=== PATIENT | male | born 1955 | race Caucasian/White ===

== ENCOUNTER 2017-07-12 11:11 | Emergency (ER) | payer MEDICARE, BC ==
[2017-07-12] MEDS ORDERED: 0.9 % SODIUM CHLORIDE 1,000 ML BAG IV ONE (11:16)
--- NOTE | 2017-07-12 11:21 | Emergency Department Record ---
History of Present Illness - General Chief Complaint: Abdominal Pain Stated Complaint: DIVERTICULITIS Source: Patient, Family Mode of Arrival: Ambulatory Limitations: No limitations - History of Present Illness Initial Comments: 61 yo male presents with LLQ pain for two days. He has noted blood at times mixed in the stools as well. He denies and vomiting. No fevers. He reports he has chronic renal failure on home HD. He has a decrease in appetite. He reports a history of diverticulitis a few years ago. PCP is in [place]. Dr Curiel. The pain is mild and stays in the LLQ. It has been many years since he saw a GI specialist. He states he makes about 300ml of urine a day. MD Complaint: Abdominal pain -: Days(s) (2) Location: LLQ Radiation: LLQ Migration to: LLQ Quality: Aching Consistency: Constant Improves With: Nothing Worsens With: Eating Associated Symptoms: Anorexia, Hematochezia - Related Data Previous Rx's Medication Instructions Recorded Ciprofloxacin HCl [Cipro] 500 mg PO DAILY #7 tablet 07/12/17 Metronidazole [Flagyl] 500 mg PO BID #14 tablet 07/12/17 Allergies Allergy/AdvReac Type Severity Reaction Status Date / Time naproxen [From Aleve] Allergy DIFFICULTY Verified 07/12/17 11:16 BREATHING Sulfa (Sulfonamide Allergy RASH Verified 07/12/17 11:16 Antibiotics) Review of Systems Constitutional: Denies: Chills, Fever, Malaise, Weakness Eyes: Denies: Eye discharge, Eye pain, Photophobia ENT: Denies: Congestion, Throat pain Respiratory: Denies: Cough, Dyspnea, Hemoptysis, Stridor, Wheezes Cardiovascular: Denies: Chest pain, Palpitations, Syncope Endocrine: Denies: Fatigue, Polydipsia, Polyuria Gastrointestinal: Reports: As per HPI, Abdominal pain, Hematochezia, Nausea. Denies: Diarrhea, Hematemesis, Vomiting Genitourinary: Denies: Dysuria, Frequency, Hematuria Musculoskeletal: Denies: Arthralgia, Back pain, Myalgia, Neck pain Skin: Denies: Bruising, Change in color, Rash Neurological: Denies: Headache, Numbness, Weakness Psychiatric: Denies: Anxiety Hematological/Lymphatic: Denies: Anemia, Blood Clots, Easy bleeding, Easy bruising, Swollen glands Physical Exam - General General Appearance: Alert, Oriented x3, Cooperative, No acute distress Limitations: No limitations - Head Head exam: Atraumatic, Normocephalic, Normal inspection - Eye Eye exam: Normal appearance. negative: Conjunctival injection, Periorbital swelling - ENT ENT exam: Normal exam, Mucous membranes moist Ear exam: Normal external inspection Nasal Exam: Normal inspection Mouth exam: Normal external inspection - Neck Neck exam: Normal inspection, Full ROM. negative: Tenderness - Respiratory Respiratory exam: Normal lung sounds bilaterally. negative: Respiratory distress - Cardiovascular Cardiovascular Exam: Regular rate, Normal rhythm, Normal heart sounds - GI/Abdominal GI/Abdominal exam: Soft, Tenderness (Tender in the LLQ, soft otherwise non tender). negative: Distended - exam: Deferred - Extremities Extremities exam: Normal inspection, Full ROM, Normal capillary refill. negative: Tenderness - Back Back exam: Reports: Normal inspection, Full ROM. Denies: Muscle spasm, Rash noted, Tenderness - Neurological Neurological exam: Alert, Normal gait, Oriented X3 - Psychiatric Psychiatric exam: Normal affect, Normal mood. negative: Agitated, Anxious - Skin Skin exam: Dry, Intact, Normal color, Warm Course - Reevaluation(s) Reevaluation #1: 07/12/17 11:21 No prior records on EMR 07/12/17 12:15 The labs were reviewed CBC with WBC of 6.1 and Hbg of 11.5 CMP with BUN of 58 and CR of 8.1. No old labs for comparison. Today is his next scheduled dialyses day. Lipase is normal 07/12/17 12:26 The patient is well aware of his baseline labs. His baseline Hgb is around 11. His baseline CR is 8. 07/12/17 13:19 CT reviewed. Small area of sigmoid inflammation CW diverticulitis. 07/12/17 13:29 Rectal Exam completed. No gross blood. Heme negative. Stool was light brown. 07/12/17 15:08 Stools studies were all negative Medical Decision Making - Lab Data Result diagrams: 07/12/17 11:20 07/12/17 11:20 Disposition Disposition: Discharge Clinical Impression: Diverticulitis Qualifiers: Diverticulitis site: unspecified part of intestinal tract Diverticulitis bleeding: without bleeding Diverticulitis complication: unspecified complication status Qualified Code(s): K57.92 - Diverticulitis of intestine, part unspecified, without perforation or abscess without bleeding Disposition: Home, Self-Care Condition: (1) Good Instructions: Diverticulitis (ED) Additional Instructions: Call your doctors for close follow up in the next week Return or be seen if you have fever, vomiting, uncontrolled pain or any new concerns. Take the antibiotics until gone as directed the Cipro is once daily the Flagyl is twice daily on days of dialysis take after dialysis Prescriptions: Ciprofloxacin HCl [Cipro] 500 mg PO DAILY #7 tablet Metronidazole [Flagyl] 500 mg PO BID #14 tablet Referrals: LAMONTE PRICE [MEDICAL DOCTOR] - CHIOMA ALCANTAR [MEDICAL DOCTOR] - Forms: Patient Portal Access Time of Disposition: 13:34 Quality - Quality Measures Quality Measures: N/A - Blood Pressure Screening Does Patient Have Any of the Following: No Blood Pressure Classification: Pre-Hypertensive BP Reading Systolic Measurement: 138 Diastolic Measurement: 71 Screening for High Blood Pressure: < Pre-Hypertensive BP, F/U Documented > [ [id number]] Pre-Hypertensive Follow-up Interventions: Referral to alternative/primary care provider.
[2017-07-12 11:31] LABS: BASO % 0.2 % (0-6); EOS % 2.9 % (0-6); GRAN % 68.9 % (47-80); HEMOGLOBIN 11.5 gm/dl (14.0-18.0); LYMPH % 20.6 % (16-45); MEAN CELL VOLUME 94.7 fl (81-97); MEAN CORPUSCULAR HGB CONC 33.8 g/dl (32-36); MEAN PLATELET VOLUME 8.9 fl (7.4-10.4); MONO % 7.4 % (0-9); PLATELET COUNT 261 K/uL (130-400); RED BLOOD COUNT 3.59 M/uL (4.40-5.70); RED CELL DISTRIBUTION WIDTH 15.8 % (11.5-14.5); WHITE BLOOD COUNT W/O DIFF 6.5 K/uL (4.2-12.2)
[2017-07-12 11:42] LABS: INR 0.99; PARTIAL THROMBOPLASTIN TIME 24.8 SECONDS (24.5-39.1); PROTHROMBIN TIME (PATIENT) 10.7 SECONDS (9.5-12.1)
[2017-07-12 12:02] LABS: ALBUMIN 4.2 g/dL (4.0-5.0); ALKALINE PHOSPHATASE 91 U/L (40-129); ALT/SGPT 18 U/L (<41); AST/SGOT 12 U/L (10.0-50.0); BLOOD UREA NITROGEN 58 mg/dL (8-23); CREATININE 8.1 mg/dL (0.7-1.2); EST GLOMERULAR FILTRATION RATE 7 mL/min; GLUCOSE,RANDOM 188 mg/dL (74-109); LIPASE 29 U/L (13-60)
[2017-07-12 12:03] LABS: BILIRUBIN,DIRECT < 0.2 mg/dL (0-0.3)
[2017-07-12 12:11] LABS: ABO GROUP O; ANTIBODY SCREEN NEGATIVE (NEGATIVE); RH TYPE POSITIVE
[2017-07-12 13:37] LABS: URINE APPEARANCE CLEAR; URINE BILIRUBIN NEGATIVE (NEGATIVE); URINE BLOOD TRACE-I (NEGATIVE); URINE COLOR YELLOW; URINE KETONE NEGATIVE (NEGATIVE); URINE LEUKOCYTE ESTERASE NEGATIVE (NEGATIVE); URINE NITRITE NEGATIVE (NEGATIVE); URINE UROBILINOGEN 0.2 E.U./dL (0.20 - 1.00)
[2017-07-12 13:51] LABS: URINE EPITHELIAL CELLS NONE SEEN (FEW); URINE RBC 0 - 2 (NONE SEEN); URINE WBC NONE SEEN (0-2/hpf)
[2017-07-12 14:22] LABS: CRYPTOSPORIDIUM PARVUM ANTIGEN NOT DETECTED (NOT DETECT); GIARDIA LAMBLIA ANTIGEN NOT DETECTED (NOT DETECT); ROTOVIRUS NOT DETECTED (NOT DETECT)
[2017-07-12 15:05] LABS: MOLECULAR C DIFF TOXIN SCREEN NOT DETECTED (NOT DETECT)
--- NOTE | 2017-07-13 10:06 | CT SCAN REPORT ---
EXAM: CT OF THE ABDOMEN AND PELVIS WITHOUT CONTRAST HISTORY: LEFT LOWER QUADRANT PAIN. TECHNIQUE: Sequential axial images were obtained from the diaphragms through the ischiorectal fossa without intravenous contrast administration. Oral contrast was administered. FINDINGS: The visualized lung bases appear normal. The heart and pericardium appear normal. Ther is cholelithiasis. No gross abnormalities within the liver. The pancreas and spleen appear normal. The adrenal glands appear normal. There is atrophy of the right kidney. There is left hydronephrosis and hydroureter. There are small urinary bladder diverticulum. The prostate gland appears normal. There is a focal area of wall thickening and adjacent inflammatory change involving the proximal sigmoid colon. Findings are likely related to diverticulitis or nonspecific colitis. The small bowel appears normal. There is a small sliding type hiatal hernia. IMPRESSION: 1. CHOLELITHIASIS WITH NO DUCTAL DILATATION. 2. FOCAL AREA OF WALL THICKENING AND ADJACENT INFLAMMATORY CHANGE INVOLVING THE PROXIMAL SIGMOID COLON. FINDINGS ARE LIKELY RELATED TO NONSPECIFIC COLITIS OR DIVERTICULITIS. 3. LEFT HYDRONEPHROSIS AND HYDROURETER. SMALL BLADDER DIVERTICULUM ARE PRESENT. ATROPHY OF THE RIGHT KIDNEY. JOB NUMBER: [id number] [facility]
== END 2017-07-12 13:41 | disposition home or self-care (01) ==
LOC: ER 11:11
DX: K57.92 Diverticulitis of intestine, part unspecified, without perforation or abscess without bleeding (principal); E11.22 Type 2 diabetes mellitus with diabetic chronic kidney disease; N18.6 End stage renal disease; Z99.2 Dependence on renal dialysis
CPT/HCPCS: 74176; 80048; 80076; 81001; 82272; 83690; 85025; 85610; 85730; 86850; 86900; 86901; 87329; 87425; 87493; 89055; 99284

== ENCOUNTER 2017-09-13 10:55 | Day surgery (SDC) | payer MEDICARE, BC ==
[2017-09-13] MEDS ORDERED: PROPOFOL 10 MG/ML VIAL IV ONE (10:56)
--- NOTE | 2017-09-14 12:31 | Operative Note ---
DATE OF SURGERY: 09/13/2017 OPERATION: COLONOSCOPY with cold snare and cold forceps polypectomy and hemoclip application. PREOPERATIVE DIAGNOSIS: Diverticulitis. POSTOPERATIVE DIAGNOSES: 1. Colon polyps. 2. Sigmoid diverticulosis. PROCEDURE: After informed consent was obtained from the patient, he was placed in the left lateral decubitus position in the endoscopy suite, sedated and monitored by the department of anesthesia. Digital rectal exam was unremarkable. A well-lubricated [id number] colonoscope was inserted into the rectum and advanced to the cecum. The cecum and cecal bulb were unremarkable. In the ascending colon there were 3 polyps, 2 were diminutive. Each removed with a cold forceps. One approximately 6 mm removed with a cold snare. A hemoclip was applied to the site as well. Minimal bleeding was noted at the sites. The remainder of the ascending colon and transverse colon were unremarkable. In the descending colon there was a 5-6 mm sessile polyp removed with a cold snare. The remainder of the descending colon was unrevealing. The sigmoid colon did reveal moderate diverticular changes. No inflammation was seen. No polyps were noted. Forward and J-turn views of the rectum and anorectum were unremarkable. The endoscope was straightened, the rectal ampulla deflated, and the endoscope was removed. RECOMMENDATIONS: The patient should follow a high-fiber diet. He will require repeat exam in 3-5 years pending tissue histology. As always, thank you for allowing me to participate in the healthcare of your patients. CC: Dr. Bryan CORTES
== END 2017-09-13 12:42 | disposition home or self-care (01) ==
LOC: HOP 10:55
PROVIDERS: ATTEND Internal Medicine Gastroenterology
DX: D12.2 Benign neoplasm of ascending colon (principal); D12.4 Benign neoplasm of descending colon; I10 Essential (primary) hypertension; E11.9 Type 2 diabetes mellitus without complications; Z79.4 Long term (current) use of insulin; K57.30 Diverticulosis of large intestine without perforation or abscess without bleeding

== ENCOUNTER 2017-10-05 23:55 | Emergency (ER) | payer MEDICARE, BC ==
[2017-10-06] MEDS ORDERED: METHYLPREDNISOLONE PF 125MG/VIAL IVP ONE (00:29)
[2017-10-06] MEDS ORDERED: IPRATROPIUM/ALBUTEROL (0.5MG/3MG) NEB INH ONE (00:29)
[2017-10-06 00:51] LABS: BASO % 0.5 % (0-6); EOS % 3.7 % (0-6); GRAN % 62.1 % (47-80); HEMATOCRIT 30.3 % (42.0-52.0); HEMOGLOBIN 9.8 gm/dl (14.0-18.0); LYMPH % 25.2 % (16-45); MEAN CELL VOLUME 100.3 fl (81-97); MEAN CORPUSCULAR HGB CONC 32.3 g/dl (32-36); MONO % 8.5 % (0-9); PLATELET COUNT 278 K/uL (130-400); RED BLOOD COUNT 3.02 M/uL (4.40-5.70); RED CELL DISTRIBUTION WIDTH 15.8 % (11.5-14.5); WHITE BLOOD COUNT W/O DIFF 6.3 K/uL (4.2-12.2)
[2017-10-06 00:55] LABS: MEAN CORPUSCULAR HEMOGLOBIN 32.4 pg (27-33)
--- NOTE | 2017-10-06 00:58 | Emergency Department Record ---
History of Present Illness - General Chief Complaint: Difficulty Breathing Stated Complaint: GWYN Time Seen by Provider: 10/06/17 00:11 Source: Patient, Family Mode of Arrival: Ambulatory Limitations: No limitations - History of Present Illness Initial Comments: pt had a coughing spell tonight and then felt he couldnt get a deep breath. he has had a productive cough but no fevers or chills. he had dialysis today. MD Complaint: Shortness of breath Onset/Timin -: Hour(s) Consistency: Getting worse Improves With: Upright position Worsens With: Coughing, Lying flat Context: Recent illness, Recent URI Associated Symptoms: Orthopnia, Sputum production - Related Data Home Oxygen Therapy: No Home Medications Medication Instructions Recorded Confirmed Last Taken Carvedilol [Coreg] 3.125 mg PO BID 10/06/17 10/06/17 10/06/17 Cholecalciferol (Vitamin D3) 5,000 unit PO DAILY 10/06/17 10/06/17 10/06/17 [Vitamin D3] Cyanocobalamin/Folic AC/Vit B6 [B 1 each PO DAILY 10/06/17 10/06/17 10/06/17 Complex-Folic Acid Tablet] Insulin Glargine,Hum.rec.anlog 60 unit SQ DAILY 10/06/17 10/06/17 10/06/17 [Lantus] Lisinopril [Zestril] 10 mg PO DAILY 10/06/17 10/06/17 10/06/17 Sevelamer Carbonate [Renvela] 800 mg PO TID 10/06/17 10/06/17 10/06/17 Timolol [Betimol] 5 ml OP BID 10/06/17 10/06/17 10/06/17 Allergies Allergy/AdvReac Type Severity Reaction Status Date / Time naproxen [From Aleve] Allergy DIFFICULTY Verified 07/12/17 11:16 BREATHING Sulfa (Sulfonamide Allergy RASH Verified 07/12/17 11:16 Antibiotics) Travel Screening - Travel/Exposure Within Last 30 Days Have you traveled within the last 30 days?: No - Travel Symptoms Symptom Screening: None Past Medical History - SOCIAL HISTORY Smoking Status: Never smoker Alcohol Use: None Drug Use: None - RESPIRATORY Hx Respiratory Disorders: No - CARDIOVASCULAR Hx Cardio Disorders: Yes Hx Hypertension: Yes - NEURO Hx Neuro Disorders: Yes Hx Neuropathy: Yes - GI Hx GI Disorders: Yes Hx Diverticulitis: Yes (strong family history) Hx Rectal Bleeding: Yes - Hx Genitourinary Disorders: Yes Hx Prostate Problems: Yes Hx Renal Disease: Yes (end stage kidney disease) - ENDOCRINE Hx Endocrine Disorders: Yes Hx Diabetes: Yes - MUSCULOSKELETAL Hx Musculoskeletal Disorders: No - PSYCH Hx Psych Problems: No - HEMATOLOGY/ONCOLOGY Hx Hematology/Oncology Disorders: Yes Hx Anemia: Yes (r/t dialysis) Hx Blood Transfusions: Yes Family Medical History Any Significant Family History?: Yes Hx Cancer: Brother/Sister Hx Dementia: Father Hx Resp Disorders: Mother Hx Stroke: Father, Mother Course Vital Signs 10/06/17 00:01 Temperature 98.3 F Pulse Rate [ 101 H Pulse Ox Probe] Respiratory 20 Rate Blood Pressure 185/97 [Left Arm] Pulse Ox 98 - Reevaluation(s) Reevaluation #1: 10/06/17 02:59 pt feels better Reevaluation #2: 10/06/17 03:24 pt feels better Medical Decision Making - Lab Data Result diagrams: 10/06/17 00:44 10/06/17 00:44 Disposition Disposition: Discharge Clinical Impression: SOB (shortness of breath) Renal failure Qualifiers: Renal failure chronicity: chronic Chronic kidney disease stage: on chronic dialysis Qualified Code(s): N18.6 - End stage renal disease; Z99.2 - Dependence on renal dialysis; Z99.2 - Dependence on renal dialysis; Z99.2 - Dependence on renal dialysis; Z99.2 - Dependence on renal dialysis Disposition: Home, Self-Care Condition: (1) Good Instructions: Dyspnea (ED) Additional Instructions: follow up with family doctor on sunday. return sooner if worse. Forms: Patient Portal Access Quality - Quality Measures Quality Measures: N/A - Blood Pressure Screening Does Patient Have Any of the Following: No, Active Dx of HTN Blood Pressure Classification: Pre-Hypertensive BP Reading Systolic Measurement: 154 Diastolic Measurement: 89 Screening for High Blood Pressure: Patient Exclusion, Hx of HTN [G9744]
[2017-10-06 01:36] LABS: NTpro B-NATRIURETIC PEPTIDE 263.6 pg/mL (<125)
[2017-10-06 01:47] LABS: CREATININE 5.6 mg/dL (0.7-1.2)
--- NOTE | 2017-10-07 17:43 | RADIOLOGY REPORT ---
EXAM: CHEST 2 VIEWS HISTORY: COUGH AND SHORTNESS OF BREATH. TECHNIQUE: Upright PA and lateral views of the chest. COMPARISON: None. FINDINGS: The heart is not enlarged and the pulmonary vasculature is nondilated. The lungs and pleural spaces are clear. Mild degenerative changes scattered within the visualized spine. Right glenohumeral arthroplasty changes. IMPRESSION: NO RADIOGRAPHIC EVIDENCE OF ACUTE CARDIOPULMONARY DISEASE. JOB NUMBER: [id number] [facility]
== END 2017-10-06 03:35 | disposition home or self-care (01) ==
LOC: ER 23:55
DX: R05 Cough (principal); I12.0 Hypertensive chronic kidney disease with stage 5 chronic kidney disease or end stage renal disease; E11.22 Type 2 diabetes mellitus with diabetic chronic kidney disease; N18.6 End stage renal disease; Z99.2 Dependence on renal dialysis; Z79.4 Long term (current) use of insulin
CPT/HCPCS: 71046; 80048; 83880; 84484; 85025; 93005; 93010; 94640; 96374; 99284; J2930